=== PATIENT | female | born 1995 | race Caucasian/White ===

== ENCOUNTER 2018-10-11 07:15 | Outpatient (CLI) | payer OTHER ==
--- NOTE | 2018-10-11 09:05 | ULT ---
COMPLETE ABDOMEN SONOGRAM: HISTORY: Abnormal liver function tests. FINDINGS: The gallbladder has a normal appearance. The common duct is 0.4 cm. The liver is within normal limi ts. No focal mass or intrahepatic biliary dilatation. No free fluid. The spleen, kidneys, and visu alized portions of the abdominal aorta, IVC, and pancreas are unremarkable. IMPRESSION: Normal abdominal sonogram. POS: [facility]
== END 2018-10-11 07:16 | disposition home or self-care (01) ==
LOC: SCSULT 07:15
PROVIDERS: ATTEND Internal Medicine
DX: R94.5 Abnormal results of liver function studies (principal)
CPT/HCPCS: 76700